=== PATIENT | male | born 1955 | race Caucasian/White ===

== ENCOUNTER → 2017-06-15 | Outpatient (CLI) | payer MEDICAID ==
[~2017-06-15] VITALS: Ht 180.3 cm; Wt 88.5 kg
[~2017-06-15] MED LIST: ADENOSINE 74 MG in GIVE UN-DILUTED 0 ML IV ONE; ADENOSINE 90 MG/30 ML INJ IV ONE
== END | disposition home or self-care (01) ==
LOC: Rad HDHVI 14:03
PROVIDERS: ATTEND Internal Medicine Cardiovascular Disease
DX: Z01.30 Encounter for examination of blood pressure without abnormal findings (principal); M54.9 Dorsalgia, unspecified; I20.9 Angina pectoris, unspecified; G47.22 Circadian rhythm sleep disorder, advanced sleep phase type; G47.00 Insomnia, unspecified; N40.1 Benign prostatic hyperplasia with lower urinary tract symptoms; G89.29 Other chronic pain; M48.07 Spinal stenosis, lumbosacral region; R79.89 Other specified abnormal findings of blood chemistry; M54.5 Low back pain; R06.02 Shortness of breath; M51.37 Other intervertebral disc degeneration, lumbosacral region
CPT/HCPCS: 78452; 93005; 96374; 96375; A9500; J0153

== ENCOUNTER → 2018-04-17 | Outpatient (CLI) | payer MEDICAID ==
[~2018-04-17] MED LIST changes: -ADENOSINE 74 MG in GIVE UN-DILUTED 0 ML IV ONE; -ADENOSINE 90 MG/30 ML INJ IV ONE; +ALBU1SYP PO; +ASPI325T4 PO; +ATOR40TA52 PO; +BECL40AE11 IN; +BET25T PO; +DIAZ10TA3 PO; +DILT30TA24 PO; +GABA250S2 PO; +HYDR-4798 PO; +IBUP800T24 PO; +LIDO5DIS21 TOP; +TRIA0.1C4 TOP; +VARE1TAB PO; +ZOLP5TAB5 PO
== END | disposition home or self-care (01) ==
LOC: Rad HDHVI 13:26
PROVIDERS: ATTEND Internal Medicine
DX: I87.2 Venous insufficiency (chronic) (peripheral) (principal); I10 Essential (primary) hypertension
CPT/HCPCS: 93970

== ENCOUNTER → 2018-04-23 | Outpatient (CLI) | payer MEDICAID ==
[2018-04-23 08:25] VITALS: BP 124/82
[2018-04-23 08:55] VITALS: BP 100/75
[2018-04-23 12:29] LABS: Basophils # (auto) 0.1 uL; Basophils % (auto) 0.7 % (0.0-2.0); Eosinophils # (auto) 0.6 uL; Eosinophils % (auto) 6.9 % (0.0-7.0); Hematocrit 40.9 % (41.0-53.0); Hemoglobin 14.1 g/dL (13.5-17.5); Lymphocytes # (auto) 2.3 uL; Lymphocytes % (auto) 27.2 % (10.0-50.0); Mean Corpuscular Hemoglobin 32.3 pg (28.0-32.0); Mean Corpuscular Hgb Conc. 34.5 g/dL (32.0-36.0); Mean Corpuscular Volume 93.7 fL (80.0-100.0); Monocytes # (auto) 0.5 uL; Monocytes % (auto) 6.2 % (0.0-12.0); Nucleated Red Blood Cells % 0.3 %; Platelet Count (auto) 218 10^3/uL (140-450); Red Blood Cells 4.36 10^6/uL (4.5-5.90); Red Cell Distribution Width 12.5 % (11.8-14.3); White Blood Cell 8.5 10^3/uL (4.4-10.8)
[2018-04-23 12:33] LABS: INR 0.98 (0.9-1.15); Partial Thromboplastin Time 24.9 sec (23.78-33.04); Prothrombin Time 10.5 sec (9.27-12.13)
[2018-04-23 12:51] LABS: BUN/Creatinine Ratio 8.4; Calcium 8.2 mg/dL (8.5-10.1); Potassium 3.6 mmol/L (3.5-5.1)
== END | disposition home or self-care (01) ==
LOC: Rad HDHVI 08:12
PROVIDERS: ATTEND Internal Medicine
DX: Z01.818 Encounter for other preprocedural examination (principal); I70.0 Atherosclerosis of aorta; D64.9 Anemia, unspecified; R79.1 Abnormal coagulation profile; I10 Essential (primary) hypertension
CPT/HCPCS: 36415; 71046; 80048; 85025; 85610; 85730; 93005; G0463

== ENCOUNTER 2018-04-25 07:00 | Day surgery (SDC) | payer MEDICAID ==
[~2018-04-25] VITALS: Ht 180.3 cm; Wt 97.5 kg
[~2018-04-25 07:00] MED LIST changes: -ZOLP5TAB5 PO
[2018-04-25] MEDS ORDERED: ZOLP5TAB5 PO (07:21)
[2018-04-25] MEDS ORDERED: IODIXANOL 320MG/ML 100ML BTL IV ONE (07:34)
[2018-04-25] MEDS ORDERED: fentaNYL CITRATE 100 MCG/2 ML VL ONE (08:07)
[2018-04-25] MEDS ORDERED: ANGIOMAX 250 MG VIAL IV ONE (08:07)
[2018-04-25] MEDS ORDERED: MIDAZOLAM HCL 1MG/1ML-2 ML VIAL ONE (08:07)
[2018-04-25] MEDS ORDERED: SODIUM CHL 0.9% 0 ML ONE (08:08)
[2018-04-25] MEDS ORDERED: HYDROcodone-ACET 10/325MG TAB ONE (09:37)
[2018-04-25] MEDS ORDERED: HYDROcodone-ACET 10/325MG TAB PO ONE (09:45)
== END 2018-04-25 11:45 | disposition home or self-care (01) ==
LOC: CATH 07:00
PROVIDERS: ATTEND Internal Medicine
DX: I25.10 Atherosclerotic heart disease of native coronary artery without angina pectoris (principal); I10 Essential (primary) hypertension; E66.9 Obesity, unspecified
CPT/HCPCS: 93460; 99152; 99153; C1760; C1769; C1894; J1644; J3010; J7030; A6257; C1751; J2250; Q9967